=== PATIENT | female | born 1985 | race Caucasian/White ===

== ENCOUNTER → 2021-12-31 14:53 | Outpatient (BNVA) | payer MEDICAID, SELFPAY | PROVIDERS: PCP Nurse Practitioner Family; Visit Provider Nurse Practitioner Family | DX: G62.9 Polyneuropathy, unspecified (principal); J30.2 Other seasonal allergic rhinitis; F32.4 Major depressive disorder, single episode, in partial remission; Z79.1 Long term (current) use of non-steroidal anti-inflammatories (NSAID); M54.2 Cervicalgia; M25.569 Pain in unspecified knee; M54.9 Dorsalgia, unspecified; Z12.4 Encounter for screening for malignant neoplasm of cervix; F41.9 Anxiety disorder, unspecified; F41.0 Panic disorder [episodic paroxysmal anxiety]; E66.9 Obesity, unspecified; Z76.89 Persons encountering health services in other specified circumstances; E66.8 Other obesity; M54.59 Other low back pain; Z68.39 Body mass index [BMI] 39.0-39.9, adult | CPT/HCPCS: 80053; 80061; 84443 ==

== ENCOUNTER → 2022-06-11 10:41 | Outpatient (BNVA) | payer MEDICAID, SELFPAY | PROVIDERS: PCP Nurse Practitioner Family; Visit Provider Nurse Practitioner Family | DX: Z13.1 Encounter for screening for diabetes mellitus (principal); R63.1 Polydipsia; F41.9 Anxiety disorder, unspecified; G62.9 Polyneuropathy, unspecified; M25.569 Pain in unspecified knee; M54.9 Dorsalgia, unspecified; Z86.69 Personal history of other diseases of the nervous system and sense organs; R51.9 Headache, unspecified; R60.9 Edema, unspecified; F41.0 Panic disorder [episodic paroxysmal anxiety]; E66.9 Obesity, unspecified; Z79.1 Long term (current) use of non-steroidal anti-inflammatories (NSAID); F32.4 Major depressive disorder, single episode, in partial remission; J30.2 Other seasonal allergic rhinitis; M50.30 Other cervical disc degeneration, unspecified cervical region; G47.33 Obstructive sleep apnea (adult) (pediatric) | CPT/HCPCS: 80053; 80061; 83036; 83880; 84443 ==

== ENCOUNTER → 2023-02-26 10:47 | Outpatient (BNVA) | payer MEDICAID, SELFPAY | PROVIDERS: PCP Nurse Practitioner Family; Visit Provider Nurse Practitioner Family | DX: E66.9 Obesity, unspecified (principal); M62.838 Other muscle spasm; F41.9 Anxiety disorder, unspecified; G62.9 Polyneuropathy, unspecified | CPT/HCPCS: 80053; 80061; 83735; 84443 ==

== ENCOUNTER 2023-06-17 08:36 | Outpatient (CLI) | payer MEDICAID, SELFPAY ==
--- NOTE | 2023-06-17 09:00 | MR_ITS ---
WS: [id number] MRA ANGIOGRAPHY [place] HISTORY: Z86.69 - Personal history of other diseases of the nervous system... COMPARISON: None available. TECHNIQUE: 3-D MR angiography is performed of the [place]. All images are reviewed including source images. Distal vertebral and basilar arteries are intact with no significant stenosis or plaque. Posterior ce rebral arteries are normal course and caliber. Posterior communicating arteries are both patent. Intracranial portion of the internal carotid arteries are normal course and caliber. No significant a therosclerosis, stenosis or aneurysm identified. Middle and anterior cerebral arteries are both paten t with no significant disease. Anterior communicating artery is also normal. IMPRESSION: Normal MRA [place].
--- NOTE | 2023-06-17 09:15 | MR_ITS ---
WS: [id number] MRI CERVICAL SPINE NONCONTRAST HISTORY: Z86.69 - Personal history of other diseases of the nervous system... COMPARISON: None available. Technique: Multiplanar, multisequence noncontrast imaging of the cervical spine. Straightening and reversal the normal cervical lordosis. Reversal centered at C5-6. Increased T2 signal in the central cervical cord centered at the C6-7 level. 2 mm syrinx is suspected extending over a length of 30 mm. On mild 3 axial sequences there is increased T2 signal in the cent ral cord and there is decreased signal focally on the T1 sequence. Craniocervical junction, C1 and C2 relationship, odontoid process and soft tissues are normal. There is mild ectopia of the cerebellar tonsils and crowding. No Chiari malformation. C2-C3: Normal. C3-C4: Normal. C4-C5: Very tiny central disc protrusion. No stenosis. C5-C6: Mild annular disc bulging with a central shallow disc protrusion. Mild effacement of the ventr al CSF. No stenosis. C6-C7: Shallow central disc protrusion. Mild annular disc bulging. No stenosis. C7-T1: Normal. Paraspinal soft tissue are normal. IMPRESSION: 1. Straightening to slight reversal of the normal cervical lordosis. May be due to spasm or positioni ng. 2. Cervical syrinx is noted centered at the C6-7 level. Maximum diameter of 2 mm. This can be further evaluated on postcontrast imaging of the cervical spine. 3. Mild annular disc bulging with central shallow disc protrusions at C5-6 and C6-7. No high-grade st enosis. 4. Mild ectopia of the cerebellar tonsils but no Chiari malformation.
== END 2023-06-17 08:37 | disposition home or self-care (01) ==
LOC: RAD 08:37
PROVIDERS: PCP Nurse Practitioner Family; Visit Provider Specialist
DX: Z86.69 Personal history of other diseases of the nervous system and sense organs (principal); M50.322 Other cervical disc degeneration at C5-C6 level; G95.89 Other specified diseases of spinal cord
CPT/HCPCS: 70544; 72141

== ENCOUNTER 2023-09-15 13:11 | Outpatient (CLI) | payer MEDICAID, SELFPAY ==
[2023-09-15 14:20] LABS: Erythrocyte Sedimentation Rate 12 mm/hr (0-15)
[2023-09-16 12:35] LABS: COMPLEMENT COMPONENT C3C 141 mg/dL (83-193); COMPLEMENT COMPONENT C4C 32 mg/dL (15-57)
[2023-09-16 12:39] LABS: COMPLEMENT, TOTAL (CH50) 58 U/mL (31-60)
[2023-09-16 15:40] LABS: CENTROMERE B ANTIBODY <1.0 NEG AI (<1.0 NEG); JO-1 ANTIBODY <1.0 NEG AI (<1.0 NEG); RNP ANTIBODY <1.0 NEG AI (<1.0 NEG); SCL-70 ANTIBODY <1.0 NEG AI (<1.0 NEG); SJOGREN'S ANTIBODY (SS-A) <1.0 NEG AI (<1.0 NEG); SM ANTIBODY <1.0 NEG AI (<1.0 NEG); SS-B <1.0 NEG AI (<1.0 NEG)
[2023-09-17 08:40] LABS: ANA SCREEN, IFA NEGATIVE (NEGATIVE)
[2023-09-17 11:10] LABS: THYROID PEROXIDASE ANTIBODIES 1 IU/mL (<9)
[2023-09-20 16:39] LABS: DNA AB (DS) CRITHIDIA,IFA NEGATIVE (NEGATIVE)
== END 2023-09-15 13:12 | disposition home or self-care (01) ==
LOC: LAB 13:12
PROVIDERS: PCP Nurse Practitioner Family; Visit Provider Specialist
DX: M79.7 Fibromyalgia (principal); M62.838 Other muscle spasm; G43.711 Chronic migraine without aura, intractable, with status migrainosus
CPT/HCPCS: 36415; 85651; 86160; 86162; 86235; 86255; 86376; 86431

== ENCOUNTER 2024-01-13 18:27 | Emergency (ER) | payer MEDICAID, SELFPAY ==
[2024-01-13] VITALS (7 sets, daily range): BP systolic 123–140; BP diastolic 55–72; PULSE 87–113; RESP 16–20; TEMP 36.6; O2SAT 89–99
--- NOTE | 2024-01-13 19:53 | XRR_ITS ---
PROCEDURE INFORMATION: Exam: XR Chest Exam date and time: 01/13/2024 8:45 PM Age: 38 years old Clinical indication: Shortness of breath; Additional info: Weakness TECHNIQUE: Imaging protocol: Radiologic exam of the chest. Views: 1 view. COMPARISON: MR cervical spin wo con* [id number] 06/17/2023 9:03 AM FINDINGS: Lungs: The lungs are clear. No pulmonary consolidation. Pleural spaces: No pleural effusion or pneumothorax. Heart/Mediastinum: The cardiomediastinal silhouette is within normal limits. Bones/joints: No acute osseous abnormalities are seen. XR/XR chest 1V portable [id number] IMPRESSION: No acute cardiopulmonary disease.
[2024-01-13 20:49] LABS: Basophils % 0.2 %; Eosinophils # 0.1 10^3/uL (0.0-0.8); Eosinophils % 0.6 %; Hematocrit 43.2 % (36-47); Lymphocytes # 5.7 10^3/uL (0.8-4.8); Lymphocytes % 36.3 %; Mean Corpuscular HGB Conc 33.1 g/dL (30-55); Mean Corpuscular Hemoglobin 29.9 pg (27-33); Mean Corpuscular Volume 90.4 fl (85-98); Mean Platelet Volume 9.8 fL (7.4-10.4); Monocytes % 6.4 %; Neutrophils % 55.8 %; Nucleated Red Blood Cells % 0 %; Platelet Count 374 10^3/cmm (157-399); Red Blood Count 4.78 10^6/uL (3.85-5.65); Red Cell Distribution Width 13.4 % (12.1-15.1); White Blood Count 15.76 10^3/uL (3.29-11.43)
--- NOTE | 2024-01-13 20:52 | ED_ITS ---
HPI - Dizziness 2 General: Chief Complaint: Dizziness Stated Complaint: weakness Time Seen by Provider: 01/13/24 20:38 History of Present Illness: HPI Narrative: Patient presents with near syncopal episode and continued cough. She was treated with Levaquin and steroids for an upper respiratory infection at the urgent care. She states she is continue to have some cough that has improved. She has been feeling lightheaded. Tonight she bent over to pick something up and when she stood up she started feeling very lightheaded and nauseous and had to sit down and almost passed out. She did have some fevers but none recently. Review of Systems 2 Narrative: Constitutional symptoms: Negative except as documented in HPI. Skin symptoms: Negative except as documented in HPI. Eye symptoms: Negative except as documented in HPI. ENMT symptoms: Negative except as documented in HPI. Respiratory symptoms: Negative except as documented in HPI. Cardiovascular symptoms: Negative except as documented in HPI. Gastrointestinal symptoms: Negative except as documented in HPI. Genitourinary symptoms: Negative except as documented in HPI. Musculoskeletal symptoms: Negative except as documented in HPI. Neurologic symptoms: Negative except as documented in HPI. Psychiatric symptoms: Negative except as documented in HPI. Endocrine symptoms: Negative except as documented in HPI. PFSH ED 2 PFSH: Family History Father Cancer Social History Smoking and tobacco/nicotine status: current every day tobacco/nicotine user (vape) Female Reproductive History: Date of last menstrual period: 12/30/23 Physical Exam 2 Narrative: EXAM NARRATIVE: General: Alert, no acute distress. Skin: Warm, dry. Head: Normocephalic, atraumatic. Neck: Supple, trachea midline. Eye: Extraocular movements are intact. Ears, nose, mouth and throat: mucosa moist. Cardiovascular: Regular, Normal peripheral perfusion. Respiratory: Lungs are clear to auscultation, respirations are non-labored, breath sounds are equal, Symmetrical chest wall expansion. Gastrointestinal: Soft, Nontender, Non distended, Normal bowel sounds. Musculoskeletal: Normal ROM, no deformity. Neurological: Alert and oriented, No focal neurological deficit observed. Psychiatric: Cooperative, appropriate mood & affect. Course 2 Vital Signs: Vital signs: Vital Signs Temperature 97.8 F 01/13/24 18:36 Pulse Rate 87 01/13/24 18:36 Respiratory Rate 18 01/13/24 18:36 Blood Pressure 126/72 01/13/24 18:36 Pulse Oximetry 99 01/13/24 18:36 Oxygen Delivery Me thod Room Air 01/13/24 18:36 MDM - Dizziness Medical Decision Making Medical decision making: Differential diagnosis including but not limited to and based on the above HPI, review of systems and physical exam: Chest x-ray, basic lab work and a respiratory panel were sent. Orders placed to evaluate differential diagnosis based on the above differential, HPI and physical exam Lab Review: Laboratory results were reviewed and interpreted by myself the emergency room physician. Patient has a white count of 15.7. I think this is secondary to her abdomen on steroids. Renal function is normal. Chest x-ray: No acute process. No infiltrate. No pneumothorax. No cardiomegaly. This was reviewed and interpreted by myself the ER physician. I reviewed the patient's medical record. Reexamination: Patient remained stable. Vitals are stable. No tachycardia. No hypotension. No altered mental status. She continues to be concerned about feeling in a fog. We discussed this may be viral. May be secondary to steroids. But ultimately I think she needs to complete a workup with her primary care physician. We are going to send respiratory panel and she will check on that in the morning. If the panel is negative I am going to put her on doxycycline if it is positive then she will not take the antibiotic. Assessment and plan: Dehydration Near syncope Upper respiratory infection -Doxycycline normal saline bolus - Discharged home - Discussed plan with patient. Answered any questions. - Evaluation and treatment of this problem were appropriate in the emergency setting. Lab Data 01/13/24 20:40 01/13/24 20:40 Laboratory Results WBC 15.76 10^3/uL (3.29-11.43) H 01/13/24 20:40 RBC 4.78 10^6/uL (3.85-5.65) 01/13/24 20:40 Hgb 14.30 g/dL (11.27-16.99) 01/13/24 20:40 Hct 43.2 % (36-47) 01/13/24 20:40 MCV 90.4 fl (85-98) 01/13/24 20:40 MCH 29.9 pg (27-33) 01/13/24 20:40 MCHC 33.1 g/dL (30-55) 01/13/24 20:40 RDW 13.4 % (12.1-15.1) 01/13/24 20:40 Plt Count 374 10^3/cmm (157-399) 01/13/24 20:40 MPV 9.8 fL (7.4-10.4) 01/13/24 20:40 Neut % (Auto) 55.8 % 01/13/24 20:40 Lymph % (Auto) 36.3 % 01/13/24 20:40 [place] % (Auto) 6.4 % 01/13/24 20:40 Eos % (Auto) 0.6 % 01/13/24 20:40 Baso % (Auto) 0.2 % 01/13/24 20:40 Neut # (Auto) 8.80 10^3/uL (1.8-7.7) H 01/13/24 20:40 Lymph # (Auto) 5.7 10^3/uL (0.8-4.8) H 01/13/24 20:40 [place] # (Auto) 1.0 10^3/uL (0.2-0.9) H 01/13/24 20:40 Eos # (Auto) 0.1 10^3/uL (0.0-0.8) 01/13/24 20:40 Baso # (Auto) 0.0 10^3/uL (0.0-0.1) 01/13/24 20:40 Nucleated RBC % (auto) 0 % 01/13/24 20:40 Nucleated RBCs # 0.0 /100WBC 01/13/24 20:40 Sodium 139 mmol/L (136-145) 01/13/24 20:40 Potassium 3.6 mmol/L (3.5-5.1) 01/13/24 20:40 Chloride 101 mmol/L (98-107) 01/13/24 20:40 Carbon Dioxide 26 mmol/L (22-29) 01/13/24 20:40 Anion Gap 15.6 (5-19) 01/13/24 20:40 BUN 13 mg/dL (6-20) 01/13/24 20:40 Creatinine 0.9 mg/dL (0.5-0.9) 01/13/24 20:40 GFR Calculation 69.3 mL/min (90-130) L 01/13/24 20:40 Glucose 116 mg/dL (65-115) H 01/13/24 20:40 Calculated Osmolality 289 mOsm/kg (285-295) 01/13/24 20:40 Calcium 9.5 mg/dL (8.5-10.5) 01/13/24 20:40 Total Bilirubin 0.2 mg/dL (0.15-1.2) 01/13/24 20:40 AST 17 U/L (0-32) 01/13/24 20:40 ALT 32 U/L (0-33) 01/13/24 20:40 Alkaline Phosphatase 98 U/L (35-105) 01/13/24 20:40 Total Protein 7.3 g/dL (6.6-8.7) 01/13/24 20:40 Albumin 4.1 g/dL (3.5-5.2) 01/13/24 20:40 Globulin 3.2 g/dL (1.3-4.6) 01/13/24 20:40 Lipase 41 U/L (13-60) 01/13/24 20:40 All radiology interpretation(s) finalized by discharge Discharge Plan Discharge Patient Disposition: Home Clinical Impression: Dehydration, Near syncope, Upper respiratory infection Condition: Stable Prescriptions: New doxycycline hyclate 100 mg capsule 100 mg PO BID 7 Days Qty: 14 0RF No Action gabapentin 400 mg capsule 400 mg PO TID 30 Days Qty: 90 5RF hydrochlorothiazide 25 mg tablet 25 mg PO DAILY 30 Days Qty: 30 5RF ibuprofen 800 mg tablet 800 mg PO TID PRN (Reason: pain) 30 Days Qty: 90 5RF levocetirizine [Xyzal] 5 mg tablet 5 mg PO DAILY 90 Days Qty: 90 1RF paroxetine HCl 30 mg tablet See Rx Instructions PO DAILY Qty: 15 5RF Rx Instructions: Take 1/2 tablet daily hydrocodone-acetaminophen 5-325 mg tablet 1 tab PO Q6H PRN (Reason: pain) 4 Days Qty: 15 0RF methocarbamol 750 mg tablet 750 mg PO Q8H PRN (Reason: pain) Qty: 30 0RF triamcinolone acetonide 0.5 % ointment 1 applic topical TID Qty: 15 0RF sumatriptan succinate [Imitrex] 100 mg tablet 100 mg PO Q2H PRN (Reason: migraine headache) Qty: 10 4RF Rx Instructions: do not exceed 2 doses per 24 hrs promethazine-DM 6.25-15 mg/5 mL syrup 5 ml PO Q6H PRN (Reason: cough) Qty: 118 0RF prednisone 20 mg tablet 60 mg PO DAILY 5 Days Qty: 15 0RF levofloxacin 750 mg tablet 750 mg PO DAILY 7 Days Qty: 7 0RF albuterol sulfate 90 mcg/actuation HFA aerosol inhaler 1 inh inhalation QID PRN (Reason: shortness of breath or wheezing) Qty: 8.5 0RF nicotine (polacrilex) [Nicorette] 2 mg gum 2 mg buccal Q2H Qty: 100 0RF fluticasone propionate 50 mcg/actuation spray,suspension See Rx Instructions .ROUTE .COMPLEX Qty: 16 6RF Dose Instruction: instill 2 SPRAYS IN EACH NOSTRIL ONCE daily Rx Instructions: instill 2 SPRAYS IN EACH NOSTRIL ONCE daily Discharge Orders: Discharge ED (Routine); Ordered 01/13/24 Ordered By: Berta Henning Referrals: Charlee Chaney NP [Primary Care Provider] - 1-3 days Discharge Diet: Usual diet Discharge Activity: Increase activity as tolerated Patient Instructions: Upper Respiratory Infection (ED) Activity Restrictions/Additional Instructions: Please call for respiratory panel results tomorrow morning. If the results are negative then take the doxycycline prescription. If they are positive do not take the antibiotic and discussed the results with your primary care physician. Thank you for choosing [facility] for your healthcare needs today. Please realize this is an emergency room and that we are providing you with a medical screening exam and this may not be complete and all inclusive of all the testing and or work up that you may need to determine your ailment or severity of your illness. You have been screened and evaluated and felt safe for discharge. Health conditions do change or evolve sometimes and as such it is important that you follow up with your Primary Doctor to be re checked, 3-5 days is a general good time frame for follow up. You are always welcome to return to the ED for re assessment if your symptoms are worsening or you have new concerns Coding Level of Care Code ED Advisory Application Developer for Lisa Alford
[2024-01-13 21:12] LABS: Alanine Aminotransferase 32 U/L (0-33); Albumin Level 4.1 g/dL (3.5-5.2); Alkaline Phosphatase 98 U/L (35-105); Anion Gap 15.6 (5-19); Aspartate Amino Transferase 17 U/L (0-32); Blood Urea Nitrogen 13 mg/dL (6-20); Calcium 9.5 mg/dL (8.5-10.5); Carbon Dioxide 26 mmol/L (22-29); Chloride 101 mmol/L (98-107); Creatinine Clr Calc Pharmacy 109.7906; Globulin 3.2 g/dL (1.3-4.6); Glomerular Filtration Rate 69.3 mL/min (90-130); Glucose 116 mg/dL (65-115); Lipase 41 U/L (13-60); Osmolality Calculated 289 mOsm/kg (285-295); Potassium 3.6 mmol/L (3.5-5.1); Sodium 139 mmol/L (136-145); Total Bilirubin 0.2 mg/dL (0.15-1.2); Total Protein 7.3 g/dL (6.6-8.7)
[2024-01-13] MEDS: doxycycline 100 mg Tablet PO (21:23)
[2024-01-13] MEDS: sodium chloride 0.9% 1,000 ML 999 ML IV (21:24)
[2024-01-13] MEDS: albuterol 2.5 mg/3 mL Neb INHALATION (21:41)
[2024-01-14 01:11] LABS: Adenovirus Not Detected (NOT DETECT); Chlamydia Pneumoniae Not Detected (NOT DETECT); Coronavirus 229E,HKU1,NL63,OC4 Not Detected (NOT DETECT); Human Metapneumovirus Not Detected (NOT DETECT); Human Rhinovirus/Enterovirus Not Detected (NOT DETECT); Influenza A Not Detected (NOT DETECT); Influenza A H1 Not Detected (NOT DETECT); Influenza A H1-2009 Not Detected (NOT DETECT); Influenza A H3 Not Detected (NOT DETECT); Influenza B Not Detected (NOT DETECT); Mycoplasma Pneumoniae Not Detected (NOT DETECT); Parainfluenza Virus Type 1 Not Detected (NOT DETECT); Parainfluenza Virus Type 2 Not Detected (NOT DETECT); Parainfluenza Virus Type 3 Not Detected (NOT DETECT); Parainfluenza Virus Type 4 Not Detected (NOT DETECT); Respiratory Syncytial Virus A Not Detected (NOT DETECT); Respiratory Syncytial Virus B Not Detected (NOT DETECT); SARS-COV-2 Not Detected (NOT DETECT)
== END 2024-01-13 23:07 | disposition home or self-care (01) ==
PROVIDERS: Emergency Medicine; Emergency Provider Emergency Medicine; PCP Nurse Practitioner Family
DX: R55 Syncope and collapse (principal); E86.0 Dehydration; J06.9 Acute upper respiratory infection, unspecified; F17.290 Nicotine dependence, other tobacco product, uncomplicated
CPT/HCPCS: 36415; 71045; 80053; 83690; 85025; 87486; 87581; 87633; 94640; 99284; J7030; J7613

== ENCOUNTER → 2024-01-15 10:46 | Outpatient (BNVA) | payer MEDICAID, SELFPAY | PROVIDERS: PCP Nurse Practitioner Family; Visit Provider Nurse Practitioner Family | DX: R00.2 Palpitations (principal); R53.83 Other fatigue; R55 Syncope and collapse; W57.XXXA Bitten or stung by nonvenomous insect and other nonvenomous arthropods, initial encounter | CPT/HCPCS: 80053; 80061; 84443; 85025; 86618; 86666; 86757; 93005 ==

== ENCOUNTER → 2024-01-21 12:08 | Outpatient (BNVA) | payer MEDICAID, SELFPAY | PROVIDERS: PCP Nurse Practitioner Family; Visit Provider Nurse Practitioner Family | DX: T78.40XA Allergy, unspecified, initial encounter (principal); M25.50 Pain in unspecified joint; X58.XXXA Exposure to other specified factors, initial encounter | CPT/HCPCS: 80053; 82785; 85651; 86001; 86003; 86038; 86140; 86200; 86431; 86705; 86706; 86709; 86803; 87340 ==

== ENCOUNTER → 2024-08-17 14:12 | Outpatient (BNVA) | payer MEDICAID, SELFPAY | PROVIDERS: PCP Nurse Practitioner Family; Visit Provider Nurse Practitioner Family | DX: R53.83 Other fatigue (principal); R00.0 Tachycardia, unspecified | CPT/HCPCS: 80053; 84443; 85025; 93005 ==

== ENCOUNTER → 2024-09-26 12:12 | Outpatient (BNVA) | payer MEDICAID, SELFPAY | PROVIDERS: PCP Family Medicine; Visit Provider Nurse Practitioner Family | DX: E03.9 Hypothyroidism, unspecified (principal) | CPT/HCPCS: 80053; 84439; 84443; 84481 ==

== ENCOUNTER → 2024-12-20 10:25 | Outpatient (BNVA) | payer MEDICAID, SELFPAY | PROVIDERS: PCP Family Medicine; Referring Provider Nurse Practitioner Family; Visit Provider Internal Medicine | DX: R00.0 Tachycardia, unspecified (principal); R53.83 Other fatigue; E66.9 Obesity, unspecified; Z13.1 Encounter for screening for diabetes mellitus | CPT/HCPCS: 36415; 83516; 84439; 84443; 84480; 86376; 86800 ==

== ENCOUNTER 2025-01-03 12:54 | Outpatient (CLI) | payer MEDICAID, SELFPAY ==
--- NOTE | 2025-01-03 12:45 | US_ITS ---
WS: [id number] THYROID ULTRASOUND HISTORY: Hypothyroidism. COMPARISON: None available. Right lobe: 1.3 cm x 1.7 cm x 4.5 cm (w x ap x l). Volume: 4.9 cm3. Normal sized gland. Mild heterogeneity throughout the gland. Small hypoechoic nodule in the posterior mid gland measures 0.7 x 0.6 x 1.1 cm. This nodule is very difficult to visualize due to its posterior position but no echogenic foci are identified. There is mild increased vascularity. Left lobe: 1.6 cm x 1.0 cm x 4.0 cm (w x ap x l). Volume: 3.0 cm3. Normal sized gland with mild heterogeneity. Isthmus: 0.2 cm. US/US thyroid [id number] IMPRESSION: 1. TI-RADS 4; moderately suspicious. RIGHT thyroid nodule. Recommend yearly ul trasound evaluations at 1, 2, 3 and 5 years. If this nodule increases in size g reater to 1.5 cm biopsy may be necessary. 2. No nodule LEFT thyroid.
== END 2025-01-03 12:55 | disposition home or self-care (01) ==
LOC: RAD 12:54
PROVIDERS: PCP Family Medicine; Visit Provider Internal Medicine
DX: R00.0 Tachycardia, unspecified (principal); R53.83 Other fatigue; E04.1 Nontoxic single thyroid nodule; R93.89 Abnormal findings on diagnostic imaging of other specified body structures
CPT/HCPCS: 76536

== ENCOUNTER 2025-01-31 11:42 | Outpatient (CLI) | payer MEDICAID, SELFPAY ==
--- NOTE | 2025-01-31 11:52 | XR_ITS ---
WS: [id number] XR knee LT 3V* [id number] REASON FOR EXAM: PAIN IN LEFT KNEE FINDINGS: No joint effusion identified. No fracture or focal bone lesion. The joint spaces of the knee are intact and well preserved. XR/XR knee LT 3V* [id number] IMPRESSION: No significant abnormality.
--- NOTE | 2025-01-31 11:53 | XR_ITS ---
WS: [id number] XR knee RT 3V* [id number] REASON FOR EXAM: PAIN IN RIGHT KNEE FINDINGS: No joint effusion identified. No fracture or focal bone lesion. The joint spaces of the knee are intact and well preserved. XR/XR knee RT 3V* [id number] IMPRESSION: No significant bone or joint abnormality.
== END 2025-01-31 11:43 | disposition home or self-care (01) ==
LOC: LAB 11:45
PROVIDERS: PCP Nurse Practitioner Family; Visit Provider Nurse Practitioner Family
DX: M25.561 Pain in right knee (principal); M25.562 Pain in left knee
CPT/HCPCS: 73562

== ENCOUNTER → 2025-02-13 10:42 | Outpatient (BNVA) | payer MEDICAID, SELFPAY | PROVIDERS: PCP Nurse Practitioner Family; Visit Provider Physician Assistant | DX: M25.561 Pain in right knee (principal); M25.562 Pain in left knee; M23.304 Other meniscus derangements, unspecified medial meniscus, left knee; G89.29 Other chronic pain | CPT/HCPCS: 73560; 73565 ==

== ENCOUNTER → 2025-04-18 14:43 | Outpatient (BNVA) | payer MEDICAID, SELFPAY | PROVIDERS: PCP Nurse Practitioner Family; Visit Provider Nurse Practitioner Family | DX: M54.9 Dorsalgia, unspecified (principal) | CPT/HCPCS: 81000 ==

== ENCOUNTER → 2025-05-22 13:48 | Outpatient (BNVA) | payer MEDICAID, SELFPAY | PROVIDERS: PCP Nurse Practitioner Family; Visit Provider Nurse Practitioner Family | DX: R05.9 Cough, unspecified (principal) | CPT/HCPCS: 71046; 80053; 85025 ==

== ENCOUNTER 2025-06-12 14:08 | Outpatient (CLI) | payer MEDICAID, SELFPAY ==
--- NOTE | 2025-06-12 14:15 | CT_ITS ---
WS: [id number] CT chest w con* [id number] HISTORY: J18.9 - Pneumonia, unspecified organism TECHNIQUE: Axial imaging performed through the thorax. Coronal and sagittal reformats are submitted. All CT scans at [facility] use at least one of these dose optimization techniques: automated exposure control; mA and/or kV adjustment per patient size (includes targeted exams where dose is matched to clinical indication); or iterative reconstruction. CONTRAST: Omnipaque 350; 100 mL IV. DLP: 491.43 mGy.cm COMPARISON: Radiograph 05/22/2025 Lungs and central airway: Normally aerated lungs. Peripheral interstitial thickening and mild tree-in-bud airspace disease greatest throughout the RIGHT lung. 4 mm noncalcified nodule superior segment RIGHT lower lobe. There is no mass. Pleura: Normal. No pleural effusion. Heart and pericardium: Normal size heart with no pericardial effusion. Mediastinum and carol: There are a few small lymph nodes. No pathologically enlarged lymph nodes. Vessels: Mild atherosclerosis aorta. Mildly dilated pulmonary artery. Chest wall and lower neck: No soft tissue masses. Upper abdomen: Prior cholecystectomy. 9 mm peripherally enhancing mass superior posterior RIGHT lobe of the liver is most likely a small hemangioma. Portal vein is normal. No adrenal mass. Osseous structures: No destructive process. CT/CT chest w con* [id number] IMPRESSION: 1. Mild tree-in-bud airspace disease greatest in the RIGHT lung and RIGHT lowe r lobe. This may indicate endobronchial spread of infection. Consider bronchopu lmonary pneumonia, MAC, aspiration and less likely allergic bronchopulmonary as pergillosis. 2. 4 mm noncalcified nodule superior segment RIGHT lower lobe. Indeterminate solid pulmonary nodule measuring 4 mm. In a low-risk patient with a solid nodule <6 mm, recommend no follow-up. In a high-risk patient, CT at 12 months is optional with stronger consideration if there is suspicious nodule m orphology and/or upper lobe location. A non-calcified 4 mm solid nodule in the right lower lobe is indeterminate. 3. No mediastinal or hilar pathologically enlarged lymph nodes. 4. Mildly dilated pulmonary artery. 5. Prior cholecystectomy. 6. Peripherally enhancing mass in the posterior RIGHT lobe of the liver is most consistent with a hemangioma.
[2025-06-12] MEDS: iohexol 350 mg/mL 500 mL Btl (per mL) IV (14:40)
== END 2025-06-12 14:09 | disposition home or self-care (01) ==
LOC: RAD 14:10
PROVIDERS: PCP Nurse Practitioner Family; Visit Provider Nurse Practitioner Family
DX: J18.9 Pneumonia, unspecified organism (principal); R05.9 Cough, unspecified; Z90.49 Acquired absence of other specified parts of digestive tract; R16.0 Hepatomegaly, not elsewhere classified; R91.8 Other nonspecific abnormal finding of lung field
CPT/HCPCS: 71260

== ENCOUNTER → 2025-06-27 12:01 | Outpatient (BNVA) | payer MEDICAID, SELFPAY | PROVIDERS: PCP Nurse Practitioner Family; Visit Provider Nurse Practitioner Family | DX: R60.0 Localized edema (principal) | CPT/HCPCS: 80053; 83880 ==